=== PATIENT | male | born 1995 | race Hispanic/Latino ===

== ENCOUNTER 2021-08-14 15:17 | Emergency (ER) | payer OTHER, SELFPAY ==
[2021-08-14 15:52] VITALS: BP 133/92; PULSE 80; RESP 19; TEMP 36.3; O2SAT 100; BMI 21.7
--- NOTE | 2021-08-14 16:49 | ED_ITS ---
HPI - Recheck/Abnormal Lab/Rx <DYLON Joel - Last Filed: 08/14/21 16:52> General Chief Complaint: Recheck/Abnormal Lab/Rx Stated Complaint: OUT OF MEDS Time Seen by Provider: 08/14/21 15:43 Source: patient Mode of arrival: Family Vehicle History of Present Illness HPI narrative: This is a 25-year-old male who presents to the emergency department saying that his pain clinic was closed today and he did not have a lock box so he did not get his methadone dose today. He states he did not also get his clonazepam and wishes to have these medications filled in the emergency department today. Patient denies any symptoms withdrawal, denies any chest pain, shortness of breath, diaphoresis, nausea vomiting. Related Data Allergies Allergy/AdvReac Type Severity Reaction Status Date / Time No Known Drug Allergies Allergy Verified 08/14/21 15:51 Review of Systems <DYLON Joel - Last Filed: 08/14/21 16:52> Review of Systems Narrative: General: denies fever, chills Head/Neck: denies headache, neck pain Eyes: denies visual changes, eye pain Cardio: denies chest pain, palpitations Respiratory: denies shortness of breath, cough GI: denies abdominal pain, nausea, vomiting, or diarrhea : denies dysuria, hematuria or flank pain MSK: denies new joint pain, muscle weakness or swelling Skin: denies rash, itching or wound Neuro: denies numbness, tingling, dizziness Patient History <DYLON Joel - Last Filed: 08/14/21 16:52> Social History Smoking Status: Current some day smoker Smoking Status: Current some day smoker tobacco type: cigarettes alcohol intake frequency: 0-2 drinks per day Substance Use Type: opiates and painkillers Exam <DYLON Joel - Last Filed: 08/14/21 16:52> Narrative Exam Narrative: Independently reviewed vitals signs and nursing notes. General: Awake, alert, nontoxic, no cardiorespiratory distress Head/Neck: Atraumatic, neck supple Eyes: EOMI, conjunctiva normal Nose: nares patent, no rhinorrhea Mouth/Throat: moist mucus membranes, posterior pharynx without erythema or lesion Cardio: Regular rate and rhythm, no peripheral edema Respiratory: respirations unlabored without wheezing, stridor, or rales. No retractions, hypoxia or tachypnea MSK: Moves all extremities, neurovascularly intact, range of motion without deficit Skin: Normal capillary refill, no rash Neuro: Normal speech and cognition, normal gait Initial Vital Signs Initial Vital Signs: Vital Signs Temperature 97.4 F L 08/14/21 15:52 Pulse Rate 80 08/14/21 15:52 Respiratory Rate 19 08/14/21 15:52 Blood Pressure 133/92 H 08/14/21 15:52 Pulse Oximetry 100 08/14/21 15:52 Oxygen Delivery Method 08/14/21 15:52 <Delilah Kiser MD - Last Filed: 08/15/21 18:34> Initial Vital Signs Initial Vital Signs: Vital Signs Temperature 97.4 F L 08/14/21 15:52 Pulse Rate 80 08/14/21 15:52 Respiratory Rate 19 08/14/21 15:52 Blood Pressure 133/92 H 08/14/21 15:52 Pulse Oximetry 100 08/14/21 15:52 Oxygen Delivery Method 08/14/21 15:52 Course <DYLON Joel - Last Filed: 08/14/21 16:52> Vital Signs Vital signs: Vital Signs - 8 hr 08/14/21 15:52 Temperature 97.4 F L Pulse Rate 80 Respiratory Rate 19 Blood Pressure 133/92 H Pulse Oximetry 100 Oxygen Delivery Method Room Air <Delilah Kiser MD - Last Filed: 08/15/21 18:34> Vital Signs Vital signs: Vital Signs - 8 hr 08/14/21 15:52 Temperature 97.4 F L Pulse Rate 80 Respiratory Rate 19 Blood Pressure 133/92 H Pulse Oximetry 100 Oxygen Delivery Method Room Air MDM - Recheck/Abnormal Lab/Rx <DYLON Joel - Last Filed: 08/14/21 16:52> MDM Narrative Medical decision making narrative: This is a 25-year-old male who presents emergency department seeking a dose of methadone since he missed his dose at the pain clinic this morning. He states that it was closed, he lost his lock box and his dose of methadone and clonazepam were not out for him to obtain today so he has not had his dose. He denies any shortness of breath, chest pain, nausea vomiting, diaphoresis, weakness, mental status changes. He states that he is fearful that the clinic will be closed tomorrow. It appears that the clinic is open tomorrow on nine, he was given contact information, he is a patient of the [facility] in [place], patient was instructed to follow up there tomorrow, to return to the emergency department if he develops any worsening symptoms, shortness of breath, chest pain, difficulty breathing, nausea vomiting or other problem. Patient is appropriate and amenable to discharge home. Vital signs are stable on repeat examination is unremarkable. Patient has been informed of results. Patient has been given strict return to ER precautions for any new or worsening symptoms. Patient understands to follow up closely with outpatient providers as instructed. Patient understands plan and agrees to discharge home. All questions and concerns answered at this time. Discharge Plan Departure Patient Disposition: Home Clinical Impression: Encounter for medication refill Activity Restrictions/Additional Instructions: Please go to the [facility] tomorrow and get your medication, it appears that they are open tomorrow starting at 0530. Please call to confirm tomorrow morning before you go there, [id number] , [place] [address] Sunday Closed Sunday 5:30AM?4PM Sunday 5:30AM?4PM Sunday 5:30AM?4PM 5:30AM?4PM Sunday 5:30AM?4PM Sunday 5:30?11AM *You have been diagnosed with missing your methadone dose today. I am sorry I am unable to fill this prescription for you today. Please go tomorrow and get your medication early in the day. I am sorry that you Mr. Dose, and hope that do not any symptoms. Please come back to emergency department if you start to have any withdrawals, or have any significant symptoms which are making you ill. Please stay hydrated, eat healthy, avoid substances and alcohol, and try to get some good sleep tonight. *What to do: *Please continue to take your regular medications as directed. [ ] New medication prescriptions sent to your pharmacy: [ ] [ ] New medication written as a paper prescription [x ] No new medications given *Please follow up with your primary care provider in 2-3 days, call for an appointment. Let them know you were seen in the Emergency Department and that we asked that you be seen for follow-up. We will electronically transmit a record of today's note if your PCP is in our system *If you do not have a primary care provider please contact [phone] to establish care with one of the [facility] primary care providers. *Return to Emergency Department if you should have any new, worsening or concerning symptoms, such as [fever greater than 101F, chills, worsening pain, persistent vomiting or other bothersome symptoms] Visit Report Forms: Patient Portal/API <Delilah Kiser MD - Last Filed: 08/15/21 18:34> Cosign ED Attending Cosdemetriature Attestation: I was immediately available in the department for consultation throughout this patient's visit. I agree with documentation as above. Delilah Kiser MD
== END 2021-08-14 16:56 | disposition home or self-care (01) ==
PROVIDERS: Emergency Provider Nurse Practitioner Critical Care Medicine
DX: Z76.0 Encounter for issue of repeat prescription (principal)
CPT/HCPCS: 99281

== ENCOUNTER 2021-11-14 06:33 | Emergency (ER) | payer OTHER, MEDICAID, SELFPAY ==
[2021-11-14 06:54] VITALS: BP 157/96; PULSE 89; RESP 19; TEMP 36.8; O2SAT 99; BMI 25.0
--- NOTE | 2021-11-14 07:33 | ED.ANXIETY ---
HPI - Anxiety General Chief Complaint: Anxiety Stated Complaint: mental crisis/panic attack Time Seen by Provider: 11/14/21 07:00 Source: patient Mode of arrival: Ambulatory History of Present Illness HPI narrative: Patient is a 25-year-old male. He is homeless. He is in the emergency department with his ?service dog? he states that over the past 24 hours he has had what he describes as a panic attack in a mental crisis. This is stem from the fact that he was kicked out of the short term living facility that he was staying. He stated that he was not given any noticed for this. He states it was because he was hiding a bottle of alcohol for another individual and it broke when it was in his bag. He states that he was caught on camera trying to clean up the mass and was kicked out of the facility. 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 States he made enough money that he wanted to take several other homeless individuals out to eat. He states that while they were sitting at the restaurant he took the dog to use the restroom outside when he came back in the ?pouch ?that contain the money was gone. He states that he does not know who took however he no longer has any money. He feels very bad about trying to help other individuals and having these individuals do bad things to him. He states he is not suicidal. Not homicidal however feels very hopeless about his current situation. Related Data Allergies Allergy/AdvReac Type Severity Reaction Status Date / Time No Known Drug Allergies Allergy Verified 08/14/21 15:51 Review of Systems Cardiovascular Comments: Denies chest pain Respiratory Comments: Denies shortness of breath Gastrointestinal Comments: Denies abdominal Psychiatric Psychiatric: Reports system reviewed and no additional complaints, except as documented and Reports as per HPI Patient History Medical History Anxiety Social History Smoking Status: Current some day smoker Smoking Status: Current some day smoker tobacco type: cigarettes alcohol intake frequency: 0-2 drinks per day Substance Use Type: marijuana, opiates and painkillers Exam Initial Vital Signs Initial Vital Signs: Vital Signs Temperature 98.2 F 11/14/21 06:54 Pulse Rate 89 11/14/21 06:54 Respiratory Rate 19 11/14/21 06:54 Blood Pressure 157/96 H 11/14/21 06:54 Pulse Oximetry 99 11/14/21 06:54 Oxygen Delivery Method 11/14/21 06:54 HENMT Head: normal to inspection and normocephalic Resp Effort & Inspection: normal respiratory effort Cardio Rate: regular rate Extrem General: normal to inspection Psych Other: Patient does seem very anxious. Has somewhat tangential thought process. He is disheveled. He is cooperative. Not suicidal. Not homicidal. Course Orders Ordered: ED Orders 11/14/21 06:58 Consult to [facility] [place] - Indirect Sales Exec Stat Discontinued Medications Lorazepam (Lorazepam 0.5 Mg Tablet) 1 mg PO NOW ONE Stop: 11/14/21 07:34 Last Admin: 11/14/21 07:44 Dose: 1 mg Vital Signs Vital signs: Vital Signs - 8 hr 11/14/21 06:54 Temperature 98.2 F Pulse Rate 89 Respiratory Rate 19 Blood Pressure 157/96 H Pulse Oximetry 99 Oxygen Delivery Method Room Air MDM - Anxiety MDM Narrative Medical decision making narrative: Patient is not suicidal. Not homicidal. Received Ativan and states that he feels much better afterwards. Patient will be discharged that he can follow-up with the [facility] per his wishes. Discharge Plan Departure Patient Disposition: Home Clinical Impression: Acute anxiety Instructions: Anxiety and Panic Attacks (Alternative Therapy) Activity Restrictions/Additional Instructions: Here in the emergency department you received a pill of a medication called Ativan/lorazepam. It was 1 mg. You can talk with your prescribing provider to see if he is willing to give you a prescription for this medicine. I do recommend that you contact the [facility] to help with some of your financial needs. Return to the emergency department for any new symptoms.
[2021-11-14] MEDS: LORazepam 0.5 MG TABLET 1 MG PO (07:44)
== END 2021-11-14 09:04 | disposition home or self-care (01) ==
PROVIDERS: Emergency Provider Emergency Medicine
DX: F41.9 Anxiety disorder, unspecified (principal)
CPT/HCPCS: 99283